=== PATIENT | female | born 1965 | race African-American/Black ===

== ENCOUNTER 2022-02-21 10:08 | Emergency (ER) | payer OTHER ==
[~2022-02-21] VITALS: Ht 162.6 cm; Wt 63.5 kg
--- NOTE | 2022-02-21 10:26 | NUR ---
Dr Wetzel at the bedside for MSE.
[2022-02-21] MEDS ORDERED: hydrALAZINE HCL 20 MG/1 ML VIAL ONE (11:00)
[2022-02-21] MEDS ORDERED: HYDROXYZINE HCL 25 MG/ML VIAL IM ONE (11:00)
[2022-02-21 11:09] LABS: HEMATOCRIT 40.7 % (31.2-41.9); MEAN CORPUSCULAR HEMOGLOBIN 32.7 uug (24.7-32.8); MEAN CORPUSCULAR VOLUME 101.9 fL (75.5-95.3); PLATELET COUNT (AUTO) 303 K/uL (179-408)
[2022-02-21 11:23] LABS: CREATININE 0.9 mg/dL (0.6-1.3)
[2022-02-21 11:29] LABS: BILIRUBIN,TOTAL 0.4 mg/dL (0.2-1.0); TOTAL PROTEIN, SERUM 7.6 g/dL (6.4-8.2)
[2022-02-21] MEDS ORDERED: diphenhydrAMINE 50 MG/1 ML VIAL ONE (12:44)
[2022-02-21] MEDS ORDERED: diphenhydrAMINE 50 MG/1 ML VIAL IM ONE (12:45)
--- NOTE | 2022-02-21 13:20 | NUR ---
Pt back from Ct scan, resting in bed w/ both eyes closed, NAD noted.
[2022-02-21 14:01] LABS: *BILIRUBIN,URIN 1+ (NEGATIVE); *CLARITY,URINE CLOUDY (CLEAR); *COLOR,URINE YELLOW (YELLOW); *KETONES,URINE NEGATIVE (NEGATIVE); *UROBILINOGEN,URINE 0.2 E.U./dl (NORMAL); LEUKOCYTE ESTERASE ,URINE 1+ (NEGATIVE); NITRITE, URINE NEGATIVE (NEGATIVE); PH,URINE 6.5 (5.0-8.0); UGLUCOSE NEGATIVE (NEGATIVE)
[2022-02-21] MEDS ORDERED: KETOROLAC TROMETHAMINE 30 MG INJ ONE (14:06)
[2022-02-21] MEDS ORDERED: ACETAMINOPHEN 325 MG TABLET ONE (14:06)
[2022-02-21] MEDS ORDERED: METOCLOPRAMIDE HCL 10 MG/2 ML VIAL ONE (14:06)
[2022-02-21 14:14] LABS: *BLOOD, URINE TRACE (NEGATIVE)
[2022-02-21] MEDS ORDERED: KETOROLAC TROMETHAMINE 60 MG INJ IM ONE (14:15)
[2022-02-21] MEDS ORDERED: METOCLOPRAMIDE HCL 10 MG/2 ML VIAL IM ONE (14:15)
[2022-02-21] MEDS ORDERED: ACETAMINOPHEN 325 MG TABLET PO ONE (14:15)
[2022-02-21] MEDS ORDERED: DIPH50CA37 GT (15:07)
[2022-02-21] MEDS ORDERED: HYDR-500 GT (15:08)
--- NOTE | 2022-02-21 15:18 | NUR ---
Patient discharged to home in stable condition. Written and verbal after care instructions given. Patient verbalizes understanding of instructions. Stressed follow up or return to ER for worsening s/s.
[2022-02-21 15:25] LABS: BACTERIA,URINE MANY /HPF (NONE SEEN); SQUAMOUS EPITHELIAL CELL,UR MODERATE /HPF (NONE SEEN); WBC,URINE 80-100 /HPF (0-3)
[2022-02-21 19:39] VITALS: BP 116/60
== END 2022-02-21 15:20 | disposition home or self-care (01) ==
LOC: ER 10:08
DX: R07.9 Chest pain, unspecified (principal); R20.0 Anesthesia of skin; J45.909 Unspecified asthma, uncomplicated
CPT/HCPCS: 99285; 70450; 71045; 80053; 81001; 83880; 85025; 84484 ×2; 36415; 93005; 96372 ×2; 87040; J1200; J0360; J1885; J2765; A4663

== ENCOUNTER 2022-03-01 10:10 | Emergency (ER) | payer OTHER ==
[~2022-03-01] VITALS: Ht 162.6 cm; Wt 63.5 kg
[~2022-03-01 10:10] MED LIST: DIPH50CA37 GT; HYDR-500 GT
[2022-03-01] MEDS ORDERED: IBUPROFEN 400 MG TABLET ONE (10:41)
[2022-03-01] MEDS ORDERED: predniSONE 20 MG TABLET ONE (10:41)
[2022-03-01] MEDS ORDERED: IBUPROFEN 400 MG TABLET PO ONE (10:45)
[2022-03-01] MEDS ORDERED: predniSONE 20 MG TABLET PO ONE (10:45)
[2022-03-01] MEDS ORDERED: PRED20TA PO (11:25)
[2022-03-01] MEDS ORDERED: CAMP85GE TP (11:35)
== END 2022-03-01 11:37 | disposition home or self-care (01) ==
LOC: ER 10:10
DX: L50.9 Urticaria, unspecified (principal); R51.9 Headache, unspecified; J45.909 Unspecified asthma, uncomplicated
CPT/HCPCS: 99283; J7512; A4663

== ENCOUNTER 2022-06-20 10:10 | Inpatient (IN) | payer MEDICAID, OTHER ==
[~2022-06-20] VITALS: Ht 167.6 cm; Wt 62.8 kg
[~2022-06-20 10:10] MED LIST changes: +CAMP85GE TP; +PRED20TA PO
[2022-06-20] MEDS ORDERED: ALBU2.5V38 NEB (10:52)
[2022-06-20] MEDS ORDERED: DIPH25CA83 PO (10:52)
[2022-06-20] MEDS ORDERED: FEXO-25 PO (10:52)
[2022-06-20] MEDS ORDERED: FLUT100D INH (10:52)
[2022-06-20 11:02] LABS: HEMATOCRIT 35.3 % (31.2-41.9); MEAN CORPUSCULAR HEMOGLOBIN 30.8 uug (24.7-32.8); MEAN CORPUSCULAR VOLUME 95.1 fL (75.5-95.3); PLATELET COUNT (AUTO) 288 K/uL (179-408)
[2022-06-20] MEDS ORDERED: KETOROLAC TROMETHAMINE 15 MG INJ ONE (11:13)
[2022-06-20] MEDS ORDERED: KETOROLAC TROMETHAMINE 15 MG INJ IM ONE (11:15)
[2022-06-20 12:13] LABS: BILIRUBIN,TOTAL 0.6 mg/dL (0.2-1.0); CREATININE 0.8 mg/dL (0.6-1.3); TOTAL PROTEIN, SERUM 6.8 g/dL (6.4-8.2)
[2022-06-20 12:34] LABS: POTASSIUM 2.7 mmol/L (3.5-5.1)
[2022-06-20] MEDS ORDERED: ASPIRIN 325 MG TABLET PO ONE (13:00)
[2022-06-20] MEDS ORDERED: diphenhydrAMINE 25 MG CAP PO ONE ×2 (13:00→13:19)
[2022-06-20] MEDS ORDERED: ASPIRIN 81 MG TAB.CHEW ONE (13:19)
[2022-06-20 13:37] LABS: PHOSPHOROUS 3.9 mg/dL (2.5-4.9)
[2022-06-20 13:43] LABS: MAGNESIUM 1.1 mg/dL (1.8-2.4)
[2022-06-20] MEDS ORDERED: POTASSIUM CHLORIDE 50 ML IV SCH (14:00)
[2022-06-20] MEDS ORDERED: MAGNESIUM SULFATE/D5W 100 ML IV SCH ×2 (14:00→14:45)
[2022-06-20] MEDS ORDERED: MAGNESIUM OXIDE 400 MG TABLET PO ONE (14:15)
[2022-06-20] MEDS ORDERED: MAGNESIUM SULFATE/D5W 200 ML ONE (15:04)
[2022-06-20] MEDS ORDERED: GABAPENTIN 100 MG CAPSULE PO SCH ×2 (16:30→17:45)
[2022-06-20] MEDS ORDERED: POTASSIUM CHLORIDE 200 ML ONE (17:02)
--- NOTE | 2022-06-20 17:13 | NUR ---
Called report to GON[facility] Jimenez.
--- NOTE | 2022-06-20 17:15 | NUR ---
Magnesium finished infusing, 2 grams.
[2022-06-20] MEDS: POTASSIUM CHLORIDE 50 ML IV SCH ×4 (17:25→21:50)
[2022-06-20] MEDS ORDERED: GABAPENTIN 100 MG CAPSULE ONE (17:32)
--- NOTE | 2022-06-20 17:35 | NUR ---
Administered Gabapentin to pt.
--- NOTE | 2022-06-20 17:40 | NUR ---
KCl started infusing at 1725. Dosing started at 50ml/hr, titrated down to 30ml/hr, due to pt pain at IV site.
[2022-06-20] MEDS ORDERED: ZOLPIDEM 5 MG TABLET PO PRN (17:45)
[2022-06-20] MEDS ORDERED: ALBUTEROL SULFATE 2.5 MG/3 ML NEBU NEB PRN (17:45)
[2022-06-20] MEDS ORDERED: ONDANSETRON 4 MG/2 ML VIAL IV PRN (17:45)
[2022-06-20] MEDS ORDERED: HYDROCODONE/APAP 5-325MG TABLET PO PRN (17:45)
[2022-06-20] MEDS ORDERED: GABAPENTIN 100 MG CAPSULE PO ONE ×2 (17:45)
[2022-06-20] MEDS ORDERED: MAGNESIUM HYDROXIDE 30 ML LIQUID UDC PO PRN (17:45)
[2022-06-20] MEDS ORDERED: ACETAMINOPHEN 325 MG TABLET PO PRN (17:45)
[2022-06-20 18:51] VITALS: BP 122/73
--- NOTE | 2022-06-20 18:51 | NUR ---
57 year old female received from er via [facility] to room 320 .pt is axox4 ,vs are stable call .light with in reach family at bed side
--- NOTE | 2022-06-20 19:30 | NUR ---
Admitted a 57 years old female with Dx of Chest Pain. Patient AAOx4. In no apparent distress. Denies any CP at this time. Complain of generalized pain at this time. No complain of SOB. IV site on left wrist area intact and patent. NSR on tele with HR of 72/min. Potassium via IV x3 more bags to continue to infuse from ER. Per ER nurse Garland. 2 bags of Magnesium already given as well as Neurontin orderx1. Routine admission care done. Plan of care initiated. Safety measure initiated and call light within reached.
--- NOTE | 2022-06-20 19:30 | NUR ---
NSR on tele with HR of 72/min.
[2022-06-20 20:00] VITALS: BP 126/68
[2022-06-20] MEDS: diphenhydrAMINE 25 MG CAP PO PRN (21:18)
[2022-06-20] MEDS: HYDROMORPHONE 1 MG/1 ML DISP.SYRIN IV PRN (21:18)
[2022-06-21] VITALS: BP 116/74
[2022-06-21 01:00] VITALS: BP 116/74
[2022-06-21 04:35] VITALS: BP 98/56
--- NOTE | 2022-06-21 05:10 | NUR ---
Dilaudid given for complain of pain and effective. NSR on tele with HR of 75/min. No complain of chest pin through out the shift. Needs attended to and met. Safety measure maintained and call light within reached.
[2022-06-21] MEDS: diphenhydrAMINE 25 MG CAP PO PRN ×2 (05:37→21:01)
[2022-06-21] MEDS: HYDROMORPHONE 1 MG/1 ML DISP.SYRIN IV PRN ×3 (05:39→21:02)
[2022-06-21] MEDS: PANTOPRAZOLE SODIUM 40 MG TABLET.DR PO SCH (06:11)
[2022-06-21 06:27] LABS: HEMATOCRIT 33.1 % (31.2-41.9); MEAN CORPUSCULAR HEMOGLOBIN 31.9 uug (24.7-32.8); MEAN CORPUSCULAR VOLUME 95.8 fL (75.5-95.3); PLATELET COUNT (AUTO) 282 K/uL (179-408)
[2022-06-21 06:58] LABS: BILIRUBIN,TOTAL 0.6 mg/dL (0.2-1.0); CREATININE 0.8 mg/dL (0.6-1.3); MAGNESIUM 1.9 mg/dL (1.8-2.4); PHOSPHOROUS 3.3 mg/dL (2.5-4.9); POTASSIUM 3.1 mmol/L (3.5-5.1); TOTAL PROTEIN, SERUM 6.4 g/dL (6.4-8.2)
[2022-06-21 07:04] LABS: THYROID STIMULATING HORMONE 8.623 mIU/mL (0.358-3.740)
--- NOTE | 2022-06-21 07:17 | NUR ---
pt received in bed awake call light with in reach no c/o pain or sob noted ,bed at lower position .we will continue to monitors
[2022-06-21] MEDS ORDERED: POTASSIUM CHLORIDE 20 MEQ POWDER PACKET PO ONE (08:00)
[2022-06-21] MEDS ORDERED: VITAMINS A AND D OINT 42 GM TUBE TP PRN (08:15)
[2022-06-21] MEDS: MAGNESIUM SULFATE/D5W 100 ML IV SCH ×2 (08:28→09:30)
[2022-06-21] MEDS: POTASSIUM CHLORIDE 10 MEQ, LIDOCAINE-MPF 1% 1 ML in IV DEXTROSE 5% 100 ML IV SCH ×4 (08:46→12:22)
[2022-06-21] MEDS: LEVOTHYROXINE SODIUM 25 MCG TABLET PO SCH (09:32)
[2022-06-21 10:00] LABS: *CLARITY,URINE CLEAR (CLEAR); *COLOR,URINE YELLOW (YELLOW); *KETONES,URINE NEGATIVE (NEGATIVE); *UROBILINOGEN,URINE 0.2 E.U./dl (NORMAL); LEUKOCYTE ESTERASE ,URINE 1+ (NEGATIVE); NITRITE, URINE NEGATIVE (NEGATIVE); PH,URINE 5.5 (5.0-8.0); UGLUCOSE NEGATIVE (NEGATIVE)
[2022-06-21 10:08] LABS: *BILIRUBIN,URIN 1+ (NEGATIVE); *BLOOD, URINE TRACE (NEGATIVE)
[2022-06-21 10:19] LABS: BACTERIA,URINE MODERATE /HPF (NONE SEEN); CALCIUM CARBONATE CRYSTALS,UR NONE SEEN /HPF (NONE SEEN); CALCIUM OXALATE CRYSTALS,UR NONE SEEN /HPF (NONE SEEN); CALCIUM PHOSPHATE CRYSTALS,UR NONE SEEN /HPF (NONE SEEN); COARSE GRANULAR CASTS,URINE NONE SEEN /LPF; CYSTINE CRYSTALS,URINE NONE SEEN /HPF (NONE SEEN); FATTY CASTS,URINE NONE SEEN /LPF (NONE SEEN); MUCUS,URINE MODERATE /LPF (0-FEW); RBC,URINE 0-3 /HPF (0-3); RED BLOOD CELL CASTS,URINE NONE SEEN /LPF (NONE SEEN); SPERM,URINE NONE SEEN /HPF (NONE SEEN); SQUAMOUS EPITHELIAL CELL,UR MANY /HPF (NONE SEEN); TRICHOMONAS,URINE NONE SEEN /HPF (NONE SEEN); TRIPLE PHOSPHATE CRYSTAL,UR NONE SEEN /HPF (NONE SEEN); TYROSINE CRYSTAL,URINE NONE SEEN /HPF (NONE SEEN); URIC ACID CRYSTALS,URINE NONE SEEN /HPF (NONE SEEN); URINE AMORPHOUS PHOSPHATES NONE SEEN /HPF; URINE AMORPHOUS URATE NONE SEEN /HPF; WAXY CASTS,URINE NONE SEEN /LPF (NONE SEEN); YEAST,URINE NONE SEEN /HPF (NONE SEEN)
[2022-06-21 11:37] VITALS: BP 110/65
[2022-06-21] MEDS ORDERED: IOHEXOL 300MG/ML 100 ML INFUS..BTL ONE (13:58)
[2022-06-21] MEDS ORDERED: IV NORMAL SALINE 250 ML IV ONE (13:59)
[2022-06-21] MEDS ORDERED: SWABABLE VALVE TRANSFER SET EA MC ONE (13:59)
--- NOTE | 2022-06-21 14:30 | NUR ---
pt walk with the pt up to the door tolerated well
--- NOTE | 2022-06-21 16:12 | NUR ---
ct abdomen pelvic done per md orders family at bed side
[2022-06-21 16:45] VITALS: BP 106/71
[2022-06-21] MEDS ORDERED: CEFTRIAXONE 1 G in IV DEXTROSE 5% 50 ML IV SCH (18:00)
--- NOTE | 2022-06-21 19:30 | NUR ---
Received patient lying in bed. AAOx4. In no acute distress. Denies any pain or SOB. Midline on right upper arm intact and patent. Safety measure initiated and call light within reached.
[2022-06-21 22:43] VITALS: BP 120/64
[2022-06-22 05:01] VITALS: BP 125/33
[2022-06-22] MEDS: LEVOTHYROXINE SODIUM 25 MCG TABLET PO SCH (06:05)
[2022-06-22] MEDS: PANTOPRAZOLE SODIUM 40 MG TABLET.DR PO SCH (06:05)
[2022-06-22 06:29] LABS: HEMATOCRIT 29.8 % (31.2-41.9); MEAN CORPUSCULAR VOLUME 96.5 fL (75.5-95.3); PLATELET COUNT (AUTO) 275 K/uL (179-408)
--- NOTE | 2022-06-22 06:35 | NUR ---
Slept through out the night. Needs attended to and met. Safety measure maintained and call light within reached.
[2022-06-22 06:40] LABS: CREATININE 0.8 mg/dL (0.6-1.3); MAGNESIUM 1.9 mg/dL (1.8-2.4); PHOSPHOROUS 3.6 mg/dL (2.5-4.9); POTASSIUM 4.2 mmol/L (3.5-5.1)
[2022-06-22] MEDS: diphenhydrAMINE 25 MG CAP PO PRN (08:46)
[2022-06-22] MEDS ORDERED: NITR100C11 PO (11:33)
[2022-06-22] MEDS ORDERED: DIPH25CA83 PO (11:33)
--- NOTE | 2022-06-22 11:52 | NUR ---
dc orders received noted and carried out,dc midline per md orders,dc instruction and education given to the pt,pt said she will follow up with her pcp and content publisher ,pt left the facility via private car in stable condition
== END 2022-06-22 11:55 | disposition home or self-care (01) | DRG 203 ==
LOC: ER 10:10 → TRANSITION 15:28 → TELE3 18:20 → MEDSURG3 06-21 07:50
PROVIDERS: ADMIT Internal Medicine; ATTEND Internal Medicine
DX: M94.0 Chondrocostal junction syndrome [Tietze] (principal); D89.89 Other specified disorders involving the immune mechanism, not elsewhere classified; K76.0 Fatty (change of) liver, not elsewhere classified; E83.42 Hypomagnesemia; E87.6 Hypokalemia; R23.4 Changes in skin texture; M12.89 Other specific arthropathies, not elsewhere classified, multiple sites; N39.0 Urinary tract infection, site not specified; R59.0 Localized enlarged lymph nodes; Z87.11 Personal history of peptic ulcer disease; K21.9 Gastro-esophageal reflux disease without esophagitis; J45.909 Unspecified asthma, uncomplicated; Z79.51 Long term (current) use of inhaled steroids; Z20.822 Contact with and (suspected) exposure to COVID-19; Z87.19 Personal history of other diseases of the digestive system; Z86.19 Personal history of other infectious and parasitic diseases
CPT/HCPCS: 36415; 71045; 83735; 84100; 84443; 84484; 85025; 93005; A4663; C1758; G0378; J0696; J1170; J1885; J2001; J3475; J3480; Q0163; Q9967

== ENCOUNTER 2022-07-09 14:26 | Emergency (ER) | payer MEDICAID ==
[~2022-07-09] VITALS: Ht 167.6 cm; Wt 61.2 kg
[~2022-07-09 14:26] MED LIST changes: +ALBU2.5V38 NEB; -CAMP85GE TP; +DIPH25CA83 PO; -DIPH50CA37 GT; +FEXO-25 PO; +FLUT100D INH; -HYDR-500 GT; +NITR100C11 PO; -PRED20TA PO
--- NOTE | 2022-07-09 14:38 | NUR ---
VSS at this time
--- NOTE | 2022-07-09 14:38 | NUR ---
seen and examined by MD Burns
--- NOTE | 2022-07-09 14:42 | NUR ---
family currently at bedside
[2022-07-09] MEDS ORDERED: diphenhydrAMINE 50 MG CAPSULE ONE ×2 (14:45→14:46)
[2022-07-09] MEDS ORDERED: diphenhydrAMINE 50 MG CAPSULE PO ONE (14:45)
--- NOTE | 2022-07-09 15:00 | NUR ---
CT scan in process
--- NOTE | 2022-07-09 15:10 | NUR ---
ct scan resulted. Dr. Burns currently speaking to patient.
[2022-07-09] MEDS ORDERED: TRAMADOL HCL 50 MG TABLET PO ONE (15:15)
[2022-07-09] MEDS ORDERED: TRAMADOL HCL 50 MG TABLET ONE (15:16)
[2022-07-09] MEDS ORDERED: TRAM50TA2 PO (15:26)
[2022-07-09 15:28] VITALS: BP 123/87
== END 2022-07-09 15:31 | disposition home or self-care (01) ==
LOC: ER 14:26
DX: G43.909 Migraine, unspecified, not intractable, without status migrainosus (principal); R22.0 Localized swelling, mass and lump, head; J45.909 Unspecified asthma, uncomplicated; Z79.899 Other long term (current) drug therapy
CPT/HCPCS: 99284; 70450; Q0163; A4663

== ENCOUNTER 2022-07-12 14:11 | Emergency (ER) | payer MEDICAID ==
[~2022-07-12] VITALS: Ht 167.6 cm; Wt 61.2 kg
[~2022-07-12 14:11] MED LIST changes: +TRAM50TA2 PO
--- NOTE | 2022-07-12 14:35 | NUR ---
Pt seen and examined by MD Noriega
--- NOTE | 2022-07-12 14:55 | NUR ---
Pt resting in bed NAD. A&O x3 c/o throbbing headache and cough with congestion. VSS, lungs clear. neoro assessment WNL, awaiting MD orders.
[2022-07-12] MEDS ORDERED: diphenhydrAMINE 25 MG CAP PO ONE ×2 (15:11→15:15)
[2022-07-12] MEDS ORDERED: predniSONE 20 MG TABLET ONE ×2 (15:12→15:18)
[2022-07-12] MEDS ORDERED: ACETAMINOPHEN 325 MG TABLET ONE (15:12)
[2022-07-12] MEDS ORDERED: FAMOTIDINE 20 MG TABLET ONE (15:12)
[2022-07-12] MEDS ORDERED: FAMOTIDINE 20 MG TABLET PO ONE (15:15)
[2022-07-12] MEDS ORDERED: ACETAMINOPHEN ES 500 MG TABLET PO ONE (15:15)
[2022-07-12] MEDS ORDERED: predniSONE 20 MG TABLET PO ONE (15:15)
--- NOTE | 2022-07-12 15:30 | NUR ---
[place], labs drawn. Given medications as prescribed. No new c/o.
[2022-07-12 15:31] LABS: HEMATOCRIT 37.1 % (31.2-41.9); MEAN CORPUSCULAR HEMOGLOBIN 32.2 uug (24.7-32.8); MEAN CORPUSCULAR VOLUME 98.6 fL (75.5-95.3); PLATELET COUNT (AUTO) 350 K/uL (179-408)
[2022-07-12 15:42] LABS: CREATININE 0.8 mg/dL (0.6-1.3); POTASSIUM 3.8 mmol/L (3.5-5.1)
[2022-07-12 15:56] LABS: THYROID STIMULATING HORMONE 4.317 mIU/mL (0.358-3.740)
--- NOTE | 2022-07-12 16:30 | NUR ---
resting comfortably, states KA[facility] less after meds. pt c/u right knee psain and tenderness awaiting results of x-ray right knee.
[2022-07-12] MEDS ORDERED: FLUT16SP16 BNOSTRILS (16:54)
[2022-07-12] MEDS ORDERED: AMOX875T2 PO (16:54)
[2022-07-12 17:03] VITALS: BP 138/88
== END 2022-07-12 17:05 | disposition home or self-care (01) ==
LOC: ER 14:11
DX: R22.0 Localized swelling, mass and lump, head (principal); J32.9 Chronic sinusitis, unspecified; G43.909 Migraine, unspecified, not intractable, without status migrainosus; J45.909 Unspecified asthma, uncomplicated; M25.561 Pain in right knee; Z79.899 Other long term (current) drug therapy
CPT/HCPCS: 99284; 80048; 84439; 84443; 85025; 85651; 36415; 73564; Q0163; J7512 ×2; A4663

== ENCOUNTER 2022-11-12 02:33 | Emergency (ER) | payer OTHER ==
[~2022-11-12] VITALS: Ht 167.6 cm; Wt 61.7 kg
[~2022-11-12 02:33] MED LIST changes: +FLUT16SP16 BNOSTRILS; +HYDR-3976 PO; -NITR100C11 PO; +ONDA4TAB11 PO; +OXYC5TAB3 PO; -TRAM50TA2 PO
[2022-11-12 03:16] LABS: BASOPHILS # (AUTO) 0.1 K/UL (0.0-0.2); BASOPHILS % (AUTO) 0.8 % (0.0-2.0); EOSINOPHILS # (AUTO) 0.1 K/uL (0.0-0.7); HEMATOCRIT 33.6 % (31.2-41.9); HEMOGLOBIN 11.3 g/dL (10.9-14.3); LYMPHOCYTES % (AUTO) 13.7 % (20.5-51.5); MEAN CORPUSCULAR HEMOGLOBIN 30.9 uug (24.7-32.8); MEAN CORPUSCULAR HGB CONC 34 g/dL (32.3-35.6); MONOCYTES # (AUTO) 0.5 K/uL (0.1-1.30); MONOCYTES % (AUTO) 7.3 % (0.0-11.0); NEUTROPHILS # (AUTO) 5.7 K/uL (1.8-8.9); NEUTROPHILS % (AUTO) 76.2 % (38.5-71.5); PLATELET COUNT (AUTO) 288 K/uL (179-408); RED BLOOD CELL COUNT(AUTO) 3.65 MIL/uL (3.63-4.92); RED CELL DISTRIBUTION WIDTH 19.2 % (12.3-17.7); WHITE BLOOD COUNT (AUTO) 7.4 K/uL (3.8-11.8)
[2022-11-12 03:17] LABS: DIFFERENTIAL COMMENT 1
[2022-11-12 03:31] LABS: CALCIUM 8.9 mg/dL (8.5-10.1); CREATININE 0.8 mg/dL (0.6-1.3); POTASSIUM 3.4 mmol/L (3.5-5.1)
[2022-11-12 03:36] LABS: ALBUMIN 3.7 g/dL (3.4-5.0); BILIRUBIN,DIRECT 0.3 mg/dL (0.0-0.2); BILIRUBIN,TOTAL 0.8 mg/dL (0.2-1.0); TOTAL PROTEIN, SERUM 7.3 g/dL (6.4-8.2)
[2022-11-12 03:50] LABS: *CLARITY,URINE CLEAR (CLEAR); *COLOR,URINE YELLOW (YELLOW); *KETONES,URINE 1+ (NEGATIVE); *PROTEIN,URINE 2+ (NEGATIVE); *UROBILINOGEN,URINE 0.2 E.U./dl (NORMAL); LEUKOCYTE ESTERASE ,URINE NEGATIVE (NEGATIVE); NITRITE, URINE NEGATIVE (NEGATIVE); PH,URINE 6.5 (5.0-8.0); UGLUCOSE NEGATIVE (NEGATIVE)
[2022-11-12 03:54] LABS: *BILIRUBIN,URIN 1+ (NEGATIVE); *BLOOD, URINE NEGATIVE (NEGATIVE)
[2022-11-12 03:55] LABS: BACTERIA,URINE FEW /HPF (NONE SEEN); RBC,URINE 0-3 /HPF (0-3); SQUAMOUS EPITHELIAL CELL,UR FEW /HPF (NONE SEEN); WBC,URINE 0-3 /HPF (0-3)
[2022-11-12] MEDS ORDERED: IV NS 1000 ML 1,000 ML IV ONE (04:00)
[2022-11-12] MEDS ORDERED: METOCLOPRAMIDE HCL 10 MG/2 ML VIAL IV ONE (04:00)
[2022-11-12] MEDS ORDERED: FAMOTIDINE. 20 MG/2 ML VIAL IV ONE ×2 (04:00→04:01)
[2022-11-12] MEDS ORDERED: METOCLOPRAMIDE HCL 10 MG/2 ML VIAL ONE (04:00)
[2022-11-12] MEDS ORDERED: MORPHINE SULFATE 4 MG/1 ML DISP.SYRIN IV ONE ×2 (04:00→07:30)
[2022-11-12] MEDS ORDERED: MORPHINE SULFATE 4 MG/1 ML DISP.SYRIN ONE (04:01)
[2022-11-12] MEDS ORDERED: POTASSIUM CHLORIDE 20 MEQ TAB.PRT.SR PO ONE (06:15)
[2022-11-12] MEDS ORDERED: ONDA4TAB5 PO (07:35)
[2022-11-12] MEDS ORDERED: FAMO-132 PO (07:35)
[2022-11-12] MEDS ORDERED: OXYC-128 PO (07:35)
[2022-11-12 08:33] VITALS: BP 138/76; TEMP 98.2; O2SAT 97
== END 2022-11-12 09:20 | disposition home or self-care (01) ==
LOC: ER 02:42
DX: R10.13 Epigastric pain (principal); R11.2 Nausea with vomiting, unspecified; R06.02 Shortness of breath; E87.6 Hypokalemia; R74.8 Abnormal levels of other serum enzymes; J45.909 Unspecified asthma, uncomplicated; Z79.899 Other long term (current) drug therapy
CPT/HCPCS: 99285; 74176; 96374; 71045; 96375; 96361; 80076; 80048; 81001; 83690; 85025; 85730; 84484; 36415; 93005; 96376; 83605 ×2; J3490; J2765; J2270 ×2; J7040; A4663